=== PATIENT | male | born 2005 | race Two or more races ===

== ENCOUNTER 2023-11-20 00:26 | Emergency (ER) | payer OTHER ==
[~2023-11-20] VITALS: Ht 182.9 cm; Wt 106.6 kg
[2023-11-20 04:16] LABS: HEMATOCRIT 39.4 % (39.0-48.0); HEMOGLOBIN 13.7 g/dL (13-16.00); MEAN CELL VOLUME 82.8 fL (80.0-100.00); MEAN CORPUSCULAR HEMOGLOBIN 28.9 pg (27.00-32.0); MEAN CORPUSCULAR HGB CONC 34.9 g/dl (32.0-36.0); PLATELET COUNT 162 K/uL (150-450); RED BLOOD COUNT 4.76 M/uL (4.00-6.00); RED CELL DISTRIBUTION WIDTH 13.8 % (11.5-14.5)
== END 2023-11-20 06:14 | disposition home or self-care (01) ==
LOC: ER 00:27
DX: R53.81 Other malaise (principal); Z20.822 Contact with and (suspected) exposure to COVID-19